=== PATIENT | female | born 1950 | race African-American/Black ===

== ENCOUNTER 2022-08-31 19:40 | Inpatient (IN) | payer MEDICARE, OTHER ==
[2022-08-31] MEDS ORDERED: Acetaminophen 500 MG TAB ONE (21:05)
[2022-08-31] MEDS ORDERED: Acetaminophen 325 MG TAB PO PRN (21:31)
[2022-08-31] MEDS ORDERED: Dextrose 5% in Water 1,000 ML IV SCH (21:45)
[2022-08-31 23:52] LABS: SARS-CoV-2 NAA Rapid Test Not Detected (NotDetected)
[2022-08-31 23:58] VITALS: BMI 30.2
[2022-09-01 03:11] LABS: #Eosinphils 0.3 thou/uL (0.0-0.7); #Lymphocytes 1.6 thou/uL (1.20-3.40); #Monocytes 0.5 thou/uL (0.11-0.59); #Neutrophils 5.4 thou/uL (1.40-6.50); %Basophils 0.6 % (0.0-1.0); %Eosinophils 3.3 % (0.0-10.0); %Lymphocytes 20.6 % (21.0-51.0); %Monocytes 6.7 % (0.0-10.0); %Neutrophils 68.8 % (42.0-75.0); Hemoglobin 11.6 g/dL (12.0-16.0); Mean Corpuscular HGB CONC 31.5 g/dL (32.0-36.0); Mean Corpuscular Hemoglobin 27.2 pg (27.0-31.0); Mean Corpuscular Volume 86.2 fl (78.0-98.0); Mean Platelet Volume 8.5 fL (7.4-10.4); Platelet Count 196 10x3/uL (130-400); RBC Distribution Width 13.1 % (11.5-14.5); Red Blood Cell (RBC) Count 4.29 mill/uL (4.20-5.40); White Blood Cell (WBC) Count 7.9 10x3/uL (4.8-10.8)
[2022-09-01 03:38] LABS: Anion Gap 11 mmol/L (10-20); BUN (Urea Nitrogen) 11 mg/dL (9.8-20.1); Calc. Creatinine Clearance 80 mL/min (70-130); Calcium 8.8 mg/dL (7.8-10.44); Carbon Dioxide 25 mmol/L (23-31); Chloride 108 mmol/L (98-107); Estimated GFR 76; Glucose 155 mg/dL (80-115); Potassium 3.8 mmol/L (3.5-5.1); Sodium 140 mmol/L (136-145)
[2022-09-01] MEDS ORDERED: Magnesium Oxide 400 MG TAB PO SCH (09:00)
[2022-09-01] MEDS ORDERED: Aspirin 81 mg Enteric Coated Tablet PO SCH (09:00)
[2022-09-01] MEDS ORDERED: Digoxin 0.125 MG TAB PO SCH (09:00)
[2022-09-01] MEDS ORDERED: Gabapentin 100 MG CAP PO SCH (09:00)
[2022-09-01] MEDS: Carvedilol 3.125 MG TAB PO SCH ×2 (09:16→16:47)
[2022-09-01] MEDS: Furosemide 40 MG TAB PO SCH ×2 (09:16→14:48)
[2022-09-01] MEDS ORDERED: Dextrose 50% Abboject 50 ML SYRINGE SLOW IVP PRN (10:27)
[2022-09-01] MEDS ORDERED: Dextrose 5% in Water 1,000 ML IV PRN (10:27)
[2022-09-01] MEDS: HumaLOG 300 UNITS/3 ML VIAL SC PRN ×2 (12:39→16:44)
[2022-09-01 16:23] VITALS: TEMP 98.1
[2022-09-01] MEDS ORDERED: Sertraline 25 MG TAB PO SCH (21:00)
[2022-09-01] MEDS ORDERED: Potassium Chloride 20 MEQ TAB PO SCH (21:00)
[2022-09-01] MEDS ORDERED: Atorvastatin Calcium 10 MG TAB PO SCH (21:00)
== END 2022-09-01 17:35 | disposition home or self-care (01) | DRG 917 ==
LOC: ERS 19:40 → IMCU/EMU 20:17
PROVIDERS: ADMIT Internal Medicine; ATTEND Internal Medicine
DX: T38.3X1A Poisoning by insulin and oral hypoglycemic [antidiabetic] drugs, accidental (unintentional), initial encounter (principal); G92.8 Other toxic encephalopathy; I13.0 Hypertensive heart and chronic kidney disease with heart failure and stage 1 through stage 4 chronic kidney disease, or unspecified chronic kidney disease; I50.22 Chronic systolic (congestive) heart failure; E11.649 Type 2 diabetes mellitus with hypoglycemia without coma; Z20.822 Contact with and (suspected) exposure to COVID-19; E78.5 Hyperlipidemia, unspecified; N18.9 Chronic kidney disease, unspecified; Z79.899 Other long term (current) drug therapy; Z79.82 Long term (current) use of aspirin; Z79.4 Long term (current) use of insulin; Z88.8 Allergy status to other drugs, medicaments and biological substances
CPT/HCPCS: 36415; 36416; 80048; 85025; J1815; J7070; U0002